=== PATIENT | female | born 1935 | race Caucasian/White ===

== ENCOUNTER 2017-02-13 17:13 | Emergency (ER) | payer MEDICARE ==
[~2017-02-13] VITALS: Ht 160 cm; Wt 63.5 kg
[~2017-02-13 17:13] MED LIST: ARICEPT10 MG PO; CALCIUM 600 +1 EAC1 PO; COZAAR100 MG PO; DIOVAN160 MG PO; FLOVENT HFA 11012 GM INH; LEVAQUIN500 MG PO; LEXAPRO10 MG PO; MIRALAX17 GM PO; MUCINEX600 MG PO; NAMENDA10 MG PO; OMNICEF300 MG PO; PREDNISONE20 MG PO; PREDNISONE5 MG PO; PREMARIN VAG; PROVENTIL2.5 MG/0.5 INH; PROVENTIL2.5 MG/3 M INH; RECLAST 55 MG/100 M IV; TRIAMCINOLONE A15 GM TOP; TYLENOL325 MG PO; VENTOLIN HFA18 GM INH; VITAMIN D31000 UNI1 PO; VITAMIN D32000 UNIT PO; XANAX0.5 MG PO; ZYRTEC10 MG PO
[2017-02-13] MEDS ORDERED: XANAX0.25 MG PO (17:58)
== END 2017-02-13 18:15 | disposition short-term general hospital (02) ==
LOC: ER 17:13
DX: J45.901 Unspecified asthma with (acute) exacerbation (principal); J44.9 Chronic obstructive pulmonary disease, unspecified
CPT/HCPCS: J2930